=== PATIENT | male | born 1990 | race Two or more races ===

== ENCOUNTER 2016-11-20 23:47 | Emergency (ER) | payer OTHER ==
[~2016-11-20] VITALS: Ht 172.7 cm; Wt 90.9 kg
[2016-11-21 00:07] VITALS: Ht 172.7 cm; Wt 90.9 kg
[2016-11-21] MEDS ORDERED: IPRATROPIUM (NEB) 0.5 MG/2.5 ML AMP INH STA (00:09)
[2016-11-21] MEDS ORDERED: METHYLPREDNISOLONE 125 MG INJ IV STA (00:09)
[2016-11-21] MEDS ORDERED: DIPHENHYDRAMINE 50 MG INJ IV STA (00:09)
[2016-11-21] MEDS ORDERED: FAMOTIDINE 20 MG INJ IV STA (00:09)
[2016-11-21] MEDS ORDERED: ALBUTEROL 0.083% (NEB) 2.5 MG/3 ML AMP INH STA (00:09)
[2016-11-21] MEDS ORDERED: EPINEPHrine 1 MG INJ IM STA (00:09)
[2016-11-21] MEDS ORDERED: EPINEPHrine 1 MG INJ ONE (00:20)
[2016-11-21] MEDS ORDERED: DIPHENHYDRAMINE 50 MG INJ ONE (00:20)
--- NOTE | 2016-11-21 00:48 | RADRPT ---
PROCEDURE: Portable chest x-ray. CLINICAL INDICATION: 26 years of age, male. Anaphylaxis. TECHNIQUE: Portable AP view of the chest. COMPARISON: None available. FINDINGS: Cardiomediastinal contours are normal. Lungs are clear. Negative for pleural effusion or pneumothorax. No acute bony abnormality. IMPRESSION: Negative for evidence of acute chest process. RPTAT: HCTS Physician Tami Date Time Electronically viewed and signed by Charisma Gardner Physician on 11/21/2016 00:47 CS/
[2016-11-21 01:31] VITALS: BP 125/86; PULSE 100; RESP 18; TEMP 97
--- NOTE | 2016-11-21 02:01 | ERD ---
ER Documentation Chief Complaint Date/Time DATE: 11/21/16 TIME: 01:59 Chief Complaint ALLERGIC REACTION TO SHRIMP +SOB HPI 26-year-old male here with complaints of allergic reaction to shrimp. He broke out in hives. He says he feels like his throat was closing. No tongue swelling. No other current complaints. ROS All systems reviewed and are negative except as per history of present illness. Medications Home Meds No Active Prescriptions or Reported Meds PMhx/Soc Medical and Surgical Hx: pt denies Medical Hx, pt denies Surgical Hx Hx Alcohol Use: No Hx Substance Use: No Hx Tobacco Use: No Smoking Status: Never smoker Physical Exam Vitals Vital Signs Date Time Temp Pulse Resp B/P Pulse Ox O2 Delivery O2 Flow Rate FiO2 11/21/16 01:31 97.0 100 18 125/86 98 Room Air 11/21/16 00:26 97.0 87 20 129/81 98 Room Air 11/21/16 00:25 83 15 98 21 11/21/16 00:07 97.0 103 20 128/65 95 Physical Exam Const: [] Head: Atraumatic Eyes: Normal Conjunctiva ENT: Normal External Ears, Nose and Mouth. Neck: Full range of motion..~ No meningismus. Resp: Clear to auscultation bilaterally Cardio: Regular rate and rhythm, no murmurs Abd: Soft, non tender, non distended. Normal bowel sounds Skin: No petechiae or rashes Back: No midline or flank tenderness Ext: No cyanosis, or edema Neur: Awake and alert Psych: Normal Mood and Affect Results 24 hrs Current Medications Medications (Trade) Dose Ordered Sig/Jensen Route PRN Reason Start Time Stop Time Status Last Admin Dose Admin Diphenhydramine HCl (Benadryl) 50 mg ONCE STAT IV 11/21/16 00:09 11/21/16 00:10 DC 11/21/16 00:20 Epinephrine (EPINEPHrine) 0.3 mg ONCE STAT IM 11/21/16 00:09 11/21/16 00:10 DC 11/21/16 00:21 Famotidine (Pepcid Iv) 20 mg ONCE STAT IV 11/21/16 00:09 11/21/16 00:11 DC 11/21/16 00:20 Methylprednisolone Sodium Succinate (Solu-Medrol) 125 mg ONCE STAT IV 11/21/16 00:09 11/21/16 00:11 DC 11/21/16 00:20 Albuterol (Proventil 0.083% (Neb)) 5 mg ONCE STAT INH 11/21/16 00:09 11/21/16 00:11 DC 11/21/16 00:24 Ipratropium [place] (Atrovent 0.02% (Neb)) 0.5 mg ONCE STAT INH 11/21/16 00:09 11/21/16 00:11 DC 11/21/16 00:24 Procedures/MDM Chest X-ray 1V Interpreted by me: Soft Tissue: No acute abnormalities Bones: No acute abnormalities Mediastinum/Cardiac Silhouette/Lungs: [No acute abnormalities] Patient's allergic symptoms have stabilized while they have been evaluated in the department without evidence of persistent systemic reaction. Patient is healthy and capable of treating and responding to rebound reactions. Patient appropriate for outpatient allergy work up and treatment. Departure Diagnosis: Primary Impression: Allergic reaction Encounter type: initial encounter Qualified Code: T78.40XA - Allergic reaction, initial encounter Condition: Stable PEDRO LIMON Nov 21, 2016 02:01
[2016-11-21] MEDS ORDERED: EPIN0.3P4 INJ (02:03)
[2016-11-21] MEDS ORDERED: ALBU18HF INHALATION (02:03)
[2016-11-21] MEDS ORDERED: PRED20TA PO (02:03)
[2016-11-21] MEDS ORDERED: RANI150T9 PO (02:03)
== END 2016-11-21 02:46 | disposition home or self-care (01) ==
LOC: E/R 23:47
DX: T78.1XXA Other adverse food reactions, not elsewhere classified, initial encounter (principal); L50.0 Allergic urticaria
CPT/HCPCS: 71010; 94664; 96372; 96374; 96375; J0171; J1200; J2930; Z7502; Z7610